=== PATIENT | female | born 1935 | race African-American/Black ===

== ENCOUNTER 2016-09-15 00:19 | Emergency (ER) | payer MEDICARE, BC ==
--- NOTE | ~2016-09-15 | CR63 ---
[facility] A Service of [facility] & [facility] RADIOLOGY TEXT RESULTS PATIENT: AMBROCIO SCHMID LOCATION: CFTX : 37 UNIT #: [id number] AGE: [address]: Melanie Fajardo APRN SEX: F ORDER DR: [id number] [facility] [address] [place], [place] [address] [id number] E MR#: [id number] Acc #: [id number] NAME: AMBROCIO SCHMID : 1935 SEX: F STUDY DATE/TIME: 09/14/2016 23:48 UNIT: [facility] ROOM: STUDY DESCRIPTION: CR Chest 2 View Attending Physician: Melanie Fajardo A.P.R.N. Ordering Physician: Melanie Fajardo A.P.R.N. Primary Care Physician: Joe Buckner M.D. MEDICAL IMAGING REPORT This report is preliminary unless electronic signature is present EXAM Chest x-ray 09/14 2348 hours INDICATIONS Cough, sore throat, congestion and fever for the last 3 days. History of hypertension. FINDINGS 2 views of the chest compared with 08/25/2016. Cardiomegaly is stable. Lungs are clear. No pneumothorax. Patient is status post thoracolumbar fusion. 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 IMPRESSION Stable cardiomegaly. No active disease. Dictated by... Maximino Love Jr., M.D. THIS IS AN ELECTRONICALLY VERIFIED REPORT Maximino Love Jr., M.D. at 09/15/2016 10:00 PM JIE/adela TD: 09/15/2016 07:19 JOB #: [id number] MEDICAL IMAGING REPORT COPY
[2016-09-15 00:17] LABS: INFLUENZA A NEG (NEG); INFLUENZA B NEG (NEG)
[~2016-09-15 00:19] MED LIST: ALBUTEROL17 GM; ASPIRIN; ASPIRIN PO; BENICAR PO; BYSTOLIC PO; CADUET 10 MG/101 TAB; CARDURA; CRESTOR PO; DARVOCET-N 1001 TAB PO; FLONASE16 GM; KERLONE; KERLONE10 MG PO; LEVAQUIN PO; LORTAB 5/500 TA1 TA1 PO; METFORMIN; NAPROXEN250 MG PO; NEURONTIN; NORCO 10/325 TA1 TAB PO; ZITHROMAX1 G/PKT PO
[2016-09-15 00:49] LABS: URINE SOURCE CLEAN CATCH
[2016-09-15 00:57] LABS: URINE APPEARANCE CLEAR; URINE BILIRUBIN NEG (NEG); URINE BLOOD NEG (NEG); URINE COLOR YELLOW; URINE GLUCOSE 100 MG/DL (NEG); URINE KETONE NEG (NEG); URINE LEUKOCYTE ESTERASE 1+ (NEG); URINE NITRATE NEG (NEG); URINE PROTEIN NEG (NEG); URINE SPECIFIC GRAVITY 1.006 (1.003-1.035); URINE UROBILINOGEN 0.2 MG/DL (NEG)
[2016-09-15 01:01] LABS: URBCS1 AUWI 0-2 /[HPF] (0-2); URINE BACTERIA AUWI NEG (NEGATIVE); URINE SQUAMOUS EPITHELIAL CELL NONE SEEN /[HPF]; UWBCS1 AUWI 0-2 (0-5)
[2016-09-15 01:02] LABS: CULTURE INDICATED? NO
== END 2016-09-15 01:10 | disposition home or self-care (01) ==
LOC: CFTX 00:19
PROVIDERS: Nurse Practitioner
DX: J06.9 Acute upper respiratory infection, unspecified (principal); I10 Essential (primary) hypertension; J44.9 Chronic obstructive pulmonary disease, unspecified; Z88.0 Allergy status to penicillin; Z98.890 Other specified postprocedural states
CPT/HCPCS: 71020; 81003; 87651; 87804; 99283

== ENCOUNTER → 2017-03-29 | Outpatient (CLI) | payer MEDICARE, BC ==
--- NOTE | ~2017-03-29 | CR63 ---
[facility] A Service of [facility] RADIOLOGY TEXT RESULTS PATIENT: AMBROCIO SCHMID LOCATION: CRAD : 36 UNIT #: [id number] AGE: [address]: CAROLINE SCHWAB APRN SEX: F ORDER DR: [id number] [facility] [address] [place], [place] [address] [id number] O MR#: [id number] Acc #: [id number] NAME: AMBROCIO SCHMID : 1935 SEX: F STUDY DATE/TIME: 03/29/2017 13:05 UNIT: [facility] ROOM: STUDY DESCRIPTION: CR Chest 2 View Attending Physician: Caroline Schwab Aprn Referring Physician: Caroline Schwab Aprn Ordering Physician: Caroline Schwab Aprn Primary Care Physician: Joe Buckner M.D. MEDICAL IMAGING REPORT This report is preliminary unless electronic signature is present EXAM PA and lateral chest DATE 03/29/2017 HISTORY 81-year-old female with shortness breath, cough, and congestion for 1 week. Diabetes. Hypertension. COMPARISON PA and lateral chest radiograph 03/21/2017 FINDINGS Lungs appear mildly hyperinflated but clear. Stable mild cardiac enlargement. Pulmonary vascular distribution is normal. Posterior vertical fusion rods are present within the lower thoracic spine and upper lumbar spine. No acute osseous abnormalities are identified. Marginal osteophyte formation is present within the thoracic spine. IMPRESSION 1. No acute chest findings. 2. Stable mild cardiac enlargement. 3. Thoracolumbar latanya spinal fusion. Dictated by... Chelsey Yanez M.D. THIS IS AN ELECTRONICALLY VERIFIED REPORT Chelsey Yanez M.D. at 03/30/2017 9:40 AM LLVirgil/malu [facility] A Service [facility] RADIOLOGY TEXT RESULTS PATIENT: AMBROCIO SCHMID LOCATION: CRAD : 36 UNIT #: [id number] AGE: [address]: CAROLINE SCHWAB APRN SEX: F ORDER DR: TD: 03/29/2017 18:13 JOB #: [id number] MEDICAL IMAGING REPORT Page 1 of 1 COPY
== END | disposition home or self-care (01) ==
LOC: CRAD 12:49
DX: J06.9 Acute upper respiratory infection, unspecified (principal); I51.7 Cardiomegaly; Z98.1 Arthrodesis status
CPT/HCPCS: 71020